=== PATIENT | female | born 1935 | race Caucasian/White ===

== ENCOUNTER → 2017-06-11 | Outpatient (CLI) | payer MEDICARE | LOC: M.RAD 10:04 | DX: Z12.31 Encounter for screening mammogram for malignant neoplasm of breast (principal) ==

== ENCOUNTER → 2018-07-09 | Outpatient (CLI) | payer MEDICARE | LOC: M.RAD 09:51 | DX: Z12.31 Encounter for screening mammogram for malignant neoplasm of breast (principal) ==

== ENCOUNTER → 2018-10-25 | Outpatient (CLI) | payer MEDICARE | LOC: M.ULTRA 09:39 | DX: E04.2 Nontoxic multinodular goiter (principal); I65.29 Occlusion and stenosis of unspecified carotid artery ==

== ENCOUNTER → 2019-07-16 | Outpatient (CLI) | payer MEDICARE | LOC: M.ULTRA 07-04 12:57 | PROVIDERS: ATTEND Internal Medicine | DX: Z12.31 Encounter for screening mammogram for malignant neoplasm of breast (principal); M85.88 Other specified disorders of bone density and structure, other site ==

== ENCOUNTER → 2020-01-16 | Outpatient (CLI) | payer MEDICARE | LOC: M.ULTRA 09:44 | PROVIDERS: ATTEND Internal Medicine | DX: E04.1 Nontoxic single thyroid nodule (principal) ==

== ENCOUNTER → 2020-08-17 | Outpatient (CLI) | payer MEDICARE | LOC: M.RAD 09:54 | PROVIDERS: ATTEND Internal Medicine | DX: Z12.31 Encounter for screening mammogram for malignant neoplasm of breast (principal); N64.89 Other specified disorders of breast ==

== ENCOUNTER → 2020-12-21 | Outpatient (CLI) | payer MEDICARE | LOC: M.ULTRA 10:43 | PROVIDERS: ATTEND Internal Medicine | DX: M79.89 Other specified soft tissue disorders (principal); M79.662 Pain in left lower leg ==